=== PATIENT | male | born 1970 | race Caucasian/White ===

== ENCOUNTER 2020-01-12 03:10 | Emergency (ER) | payer MEDICAID, OTHER ==
[~2020-01-12] VITALS: Ht 180.3 cm; Wt 72.6 kg
[2020-01-12 03:10] VITALS: BP 180/105
[~2020-01-12 03:10] MED LIST: FAMO-131 PO; SUCR1TAB31 PO
--- NOTE | 2020-01-12 03:39 | NUR ---
Patient eloped from facility. ER MD notified.
== END 2020-01-12 03:41 | disposition left against medical advice (07) ==
LOC: ER 03:12
DX: M79.604 Pain in right leg (principal); Z53.21 Procedure and treatment not carried out due to patient leaving prior to being seen by health care provider

== ENCOUNTER 2020-02-12 22:36 | Emergency (ER) | payer MEDICAID ==
[~2020-02-12] VITALS: Ht 180.3 cm; Wt 68.0 kg
[2020-02-12 22:46] VITALS: BP 121/76
[2020-02-12] MEDS ORDERED: IBUPROFEN 600 MG TABLET PO ONE (23:00)
--- NOTE | 2020-02-12 23:00 | NUR ---
PT LEFT WITHOUT ACI
== END 2020-02-12 23:14 | disposition home or self-care (01) ==
LOC: ER 22:40
DX: S62.102A Fracture of unspecified carpal bone, left wrist, initial encounter for closed fracture (principal); J45.909 Unspecified asthma, uncomplicated; G89.29 Other chronic pain; Z59.0 Homelessness; Z79.899 Other long term (current) drug therapy; X58.XXXA Exposure to other specified factors, initial encounter; Y93.89 Activity, other specified; Y92.89 Other specified places as the place of occurrence of the external cause; Y99.8 Other external cause status
CPT/HCPCS: 29125; 99283; L3763

== ENCOUNTER 2020-02-15 00:34 | Emergency (ER) | payer MEDICAID ==
[~2020-02-15] VITALS: Ht 180.3 cm; Wt 72.6 kg
--- NOTE | 2020-02-15 00:40 | NUR ---
BIBS FOR C/O L WRIST PAIN S/P FALL
--- NOTE | 2020-02-15 01:26 | NUR ---
PT IS MEDICALLY STABLE FOR D/C. Patient discharged to home in stable condition. Written and verbal after care instructions given.Patient given written and verbal discharge instructions. Patient verbalizes understanding of instructions. Patient is ambulatory with steady gait. Refuses offer of detention placement. Patient given list of available shelters in surrounding area. PT HAD PROPER CLOTHING ON UPON DISCHARGE. SNACKS PROVIDED.
[2020-02-15 01:58] VITALS: BP 145/72
== END 2020-02-15 01:26 | disposition home or self-care (01) ==
LOC: ER 00:37
DX: S52.592A Other fractures of lower end of left radius, initial encounter for closed fracture (principal); J45.909 Unspecified asthma, uncomplicated; G89.29 Other chronic pain; F17.200 Nicotine dependence, unspecified, uncomplicated; Z59.0 Homelessness; Z79.899 Other long term (current) drug therapy; W19.XXXA Unspecified fall, initial encounter; Y93.89 Activity, other specified; Y92.89 Other specified places as the place of occurrence of the external cause; Y99.8 Other external cause status
CPT/HCPCS: 73110

== ENCOUNTER 2020-02-29 22:27 | Emergency (ER) | payer MEDICAID ==
[~2020-02-29] VITALS: Ht 180.3 cm; Wt 72.6 kg
--- NOTE | 2020-02-29 22:32 | NUR ---
CALL FOR TRIAGE, NO ANSWER.
--- NOTE | 2020-02-29 22:50 | NUR ---
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
[2020-02-29] MEDS ORDERED: HYDROMORPHONE HCL 2 MG TABLET PO PRN (23:30)
[2020-02-29] MEDS ORDERED: HYDROMORPHONE HCL 2 MG TABLET ONE (23:43)
[2020-02-29] MEDS ORDERED: diphenhydrAMINE HCL 50 MG CAPSULE ONE (23:43)
[2020-02-29] MEDS ORDERED: ONDANSETRON 4 MG TAB.RAPDIS ONE (23:44)
[2020-02-29 23:49] LABS: BASOPHILS # (AUTO) 0.1 /CMM (0.0-0.2); BASOPHILS % (AUTO) 0.9 % (0.0-2.0); EOSINOPHILS % (AUTO) 3.5 % (0.0-6.0); HEMATOCRIT 33 % (39-51); HEMOGLOBIN 10.7 g/dL (13.5-17.5); LYMPHOCYTES # (AUTO) 1.6 /CMM (0.8-4.8); LYMPHOCYTES % (AUTO) 22.9 % (20.0-44.0); MEAN CORPUSCULAR HGB CONC 32 g/dl (31.0-36.0); MEAN CORPUSCULAR VOLUME 80 fL (80-96); MONOCYTES # (AUTO) 0.9 /CMM (0.1-1.30); MONOCYTES % (AUTO) 13.2 % (2.0-12.0); NEUTROPHILS # (AUTO) 4.1 /CMM (1.8-8.9); NEUTROPHILS % (AUTO) 59.5 % (43.0-81.0); PLATELET COUNT (AUTO) 405 /CMM (150-450); RED BLOOD CELL COUNT(AUTO) 4.17 MIL/uL (4.5-6.0); WHITE BLOOD COUNT (AUTO) 6.9 K/uL (4.3-11.0)
[2020-03-01] MEDS ORDERED: ONDANSETRON 4 MG TAB.RAPDIS SL ONE
[2020-03-01] MEDS ORDERED: diphenhydrAMINE HCL 25 MG CAPSULE PO ONE
[2020-03-01 00:08] LABS: ALBUMIN 3.3 g/dL (3.4-5.0); BILIRUBIN,DIRECT 0.1 mg/dL (0.0-0.2); BILIRUBIN,TOTAL 0.2 mg/dL (0.2-1.0); CALCIUM, SERUM 8.6 mg/dL (8.5-10.1); TOTAL PROTEIN, SERUM 7.2 g/dL (6.4-8.2)
--- NOTE | 2020-03-01 00:42 | NUR ---
pt is medically stable for d/c. IV removed. Catheter intact and site benign. Pressure and 4x4 applied to site. No bleeding noted.Patient discharged to home in stable condition. Written and verbal after care instructions given. Patient verbalizes understanding of instruction. Patient is ambulatory with steady gait. Refuses offer of long term placement. Patient given list of available shelters in surrounding area. snacks provided. had proper clothing on
[2020-03-01 00:49] VITALS: BP 133/77
== END 2020-03-01 00:50 | disposition home or self-care (01) ==
LOC: ER 22:33
DX: R10.84 Generalized abdominal pain (principal); F17.210 Nicotine dependence, cigarettes, uncomplicated; F15.10 Other stimulant abuse, uncomplicated; J45.909 Unspecified asthma, uncomplicated; G89.29 Other chronic pain; Z76.5 Malingerer [conscious simulation]; Z59.0 Homelessness; Z79.899 Other long term (current) drug therapy
CPT/HCPCS: 36415; 74176; 80048; 80076; 83690; 85025; 85730; 99284; 99406; Q0162; Q0163

== ENCOUNTER 2020-06-20 19:23 | Emergency (ER) | payer MEDICAID ==
[~2020-06-20] VITALS: Ht 180.3 cm; Wt 68.0 kg
--- NOTE | 2020-06-20 19:30 | NUR ---
TO ER BED 19 AMBULATORY C/O SI WITH PLAN TO JUM IN FORNT OF A BUS. DENIES HI. PT REPORTS TAKING [place] FOR HIS RECENT L WRIST INJURY. PT AAOX4 NO ACUTE DISTRESS NOTED, RESP EVEN AND UNLABORED. PT CALM AND COOPERATIVE AT THIS TIME. WILL CONTINUE TO MONITOR PT CLOSELY.
[2020-06-20 21:04] LABS: BASOPHILS # (AUTO) 0.1 /CMM (0.0-0.2); BASOPHILS % (AUTO) 1.1 % (0.0-2.0); EOSINOPHILS % (AUTO) 2.3 % (0.0-6.0); HEMATOCRIT 32 % (39-51); HEMOGLOBIN 10.3 g/dL (13.5-17.5); LYMPHOCYTES # (AUTO) 1.5 /CMM (0.8-4.8); LYMPHOCYTES % (AUTO) 18.6 % (20.0-44.0); MEAN CORPUSCULAR HGB CONC 32 g/dl (31.0-36.0); MEAN CORPUSCULAR VOLUME 79 fL (80-96); MONOCYTES # (AUTO) 0.6 /CMM (0.1-1.30); NEUTROPHILS # (AUTO) 5.6 /CMM (1.8-8.9); PLATELET COUNT (AUTO) 549 /CMM (150-450); RED BLOOD CELL COUNT(AUTO) 4.06 MIL/uL (4.5-6.0)
[2020-06-20 21:31] LABS: CALCIUM, SERUM 9.2 mg/dL (8.5-10.1); CARBON DIOXIDE 26 mmol/L (21-32); CHLORIDE 103 mmol/L (98-107); GLUCOSE 116 mg/dL (74-106); POTASSIUM 4.2 mmol/L (3.5-5.1); SODIUM SERUM 139 mmol/L (136-145); UREA NITROGEN, BLOOD 41 mg/dL (7-18)
--- NOTE | 2020-06-20 21:32 | NUR ---
COVID SWAB COLLECTED AND SENT TO LAB.
[2020-06-20 21:33] LABS: ALANINE AMINOTRANSFERASE 20 U/L (12-78); ALBUMIN 3.5 g/dL (3.4-5.0); ALCOHOL, BLOOD < 3 mg/dL (0-0); ALKALINE PHOSPHATASE 100 U/L (46-116); ASPARTATE AMINOTRANSFERASE 20 U/L (15-37); BILIRUBIN,DIRECT 0.1 mg/dL (0.0-0.2); BILIRUBIN,TOTAL 0.2 mg/dL (0.2-1.0); TOTAL PROTEIN, SERUM 7.6 g/dL (6.4-8.2)
[2020-06-20 21:39] LABS: ACETAMINOPHEN < 0 ug/ml (10-30)
[2020-06-20 21:50] LABS: BILIRUBIN,URINE NEGATIVE (NEGATIVE); COLOR,URINE YELLOW (YELLOW); LEUKOCYTE ESTERASE ,URINE NEGATIVE (NEGATIVE); NITRITE, URINE NEGATIVE (NEGATIVE); PH,URINE 5.5 (5.0-8.0); PROTEIN,URINE 30 mg/dl (NEGATIVE); UGLUCOSE NEGATIVE (NEGATIVE); UROBILINOGEN,URINE 0.2 EU/dL (0.2)
--- NOTE | 2020-06-20 22:06 | NUR ---
Call from lab. Rapid covid negative.
[2020-06-20 22:31] LABS: BACTERIA,URINE None seen /HPF (None Seen); RBC,URINE 0-2 /HPF (0-2); SQUAMOUS EPITHELIAL CELL,UR Few /HPF (None Seen); URINE AMORPHOUS URATE Few /HPF (None Seen)
--- NOTE | 2020-06-20 22:47 | NUR ---
CLINICAL AND FACESHEET FAXED TO [facility] FOR VOLUNTARY PSYCH ADMISSION.
--- NOTE | 2020-06-21 03:03 | NUR ---
TRANSFER INFORMATION: PT ACCEPTED AT [facility] ACCEPTING MD AND ROOM # WILL BE PROVIDED DURING REPORT PHONE NUMBER FOR REPORT EXT [id number]
--- NOTE | 2020-06-21 03:07 | NUR ---
PT REFUSING TO GO TO [facility]. PT STATES "I'M NOT SUICIDAL ANYMORE, I'D RATHER JUST GO HOME." PT DENIES SI/HI AT THIS TIME.
[2020-06-21 03:12] VITALS: BP 147/79
--- NOTE | 2020-06-21 03:12 | NUR ---
PT LEFT WITHOUT ACI.
== END 2020-06-21 03:13 | disposition home or self-care (01) ==
LOC: ER 19:26
DX: F19.10 Other psychoactive substance abuse, uncomplicated (principal); R45.851 Suicidal ideations; G89.29 Other chronic pain; Z20.822 Contact with and (suspected) exposure to COVID-19; Z79.891 Long term (current) use of opiate analgesic; Z59.0 Homelessness; F17.200 Nicotine dependence, unspecified, uncomplicated; D50.9 Iron deficiency anemia, unspecified; S62.102D Fracture of unspecified carpal bone, left wrist, subsequent encounter for fracture with routine healing; X58.XXXD Exposure to other specified factors, subsequent encounter
CPT/HCPCS: 36415; 80048; 80076; 80299; 80307; 80320; 81001; 85025; 87426; 99285; C9803; G0480

== ENCOUNTER 2021-01-10 01:15 | Inpatient (IN) | payer MEDICAID ==
[~2021-01-10] VITALS: Ht 180.3 cm; Wt 72.6 kg
--- NOTE | 2021-01-10 01:31 | NUR ---
CALLED FOR TRIAGE NOT IN WAITING ROOM
[2021-01-10] MEDS ORDERED: KETOROLAC TROMETHAMINE INJ 60 MG/2 ML VIAL IM ONE ×2 (02:00→02:10)
--- NOTE | 2021-01-10 02:00 | NUR ---
BLOOD WORK AND URINE COLLECTED AND SENT TO LAB
[2021-01-10 02:13] LABS: BILIRUBIN,URINE Negative (NEGATIVE); COLOR,URINE LIGHT YELLOW (YELLOW); LEUKOCYTE ESTERASE ,URINE Negative (NEGATIVE); NITRITE, URINE Negative (NEGATIVE); PROTEIN,URINE 30 mg/dl (NEGATIVE); UGLUCOSE Negative (NEGATIVE); UROBILINOGEN,URINE 0.2 EU/dL (0.2)
[2021-01-10 02:19] LABS: BASOPHILS # (AUTO) 0.2 K/uL (0.0-0.2); BASOPHILS % (AUTO) 2.1 % (0.0-2.0); HEMATOCRIT 37 % (39-51); HEMOGLOBIN 11.7 g/dL (13.5-17.5); LYMPHOCYTES # (AUTO) 1.6 K/uL (0.8-4.8); LYMPHOCYTES % (AUTO) 21.3 % (20.0-44.0); MEAN CORPUSCULAR HGB CONC 32 g/dl (31.0-36.0); MEAN CORPUSCULAR VOLUME 79 fL (80-96); MONOCYTES # (AUTO) 0.7 K/uL (0.1-1.30); MONOCYTES % (AUTO) 9.9 % (2.0-12.0); NEUTROPHILS # (AUTO) 4.6 K/uL (1.8-8.9); NEUTROPHILS % (AUTO) 62.7 % (43.0-81.0); PLATELET COUNT (AUTO) 376 K/uL (150-450); RED BLOOD CELL COUNT(AUTO) 4.62 MIL/uL (4.5-6.0); WHITE BLOOD COUNT (AUTO) 7.4 K/uL (4.3-11.0)
[2021-01-10 02:26] LABS: CALCIUM, SERUM 9.2 mg/dL (8.5-10.1); CREATININE 1.5 mg/dL (0.6-1.3); POTASSIUM 4.1 mmol/L (3.5-5.1)
--- NOTE | 2021-01-10 02:30 | NUR ---
PT GOING TO CT.
[2021-01-10 02:31] LABS: ALBUMIN 4.1 g/dL (3.4-5.0); BILIRUBIN,DIRECT 0.2 mg/dL (0.0-0.2); BILIRUBIN,TOTAL 0.7 mg/dL (0.2-1.0); TOTAL PROTEIN, SERUM 8.2 g/dL (6.4-8.2)
--- NOTE | 2021-01-10 02:48 | NUR ---
per lab, trop 1.508. aware
--- NOTE | 2021-01-10 02:58 | NUR ---
DR COELHO PAGED FOR CARDIOLOGY CONSULT. TRANSFERED TO
[2021-01-10] MEDS ORDERED: ASPIRIN 325 MG TABLET PO ONE (03:00)
--- NOTE | 2021-01-10 03:07 | NUR ---
covid swab sent to lab
[2021-01-10] MEDS ORDERED: ASPIRIN 325 MG TABLET ONE (03:24)
--- NOTE | 2021-01-10 03:27 | NUR ---
called [facility], conduit helper was paged
[2021-01-10] MEDS ORDERED: ENOXAPARIN SODIUM 80 MG/0.8 ML DISP.SYRIN SQ ONE ×2 (03:28→03:30)
[2021-01-10] MEDS ORDERED: hydrALAZINE HCL IV 20 MG VIAL ONE (03:41)
--- NOTE | 2021-01-10 03:58 | NUR ---
called [facility] to have online affiliate marketing manager dr christianson
[2021-01-10] MEDS ORDERED: hydrALAZINE HCL IV 20 MG VIAL IV ONE (04:00)
--- NOTE | 2021-01-10 04:22 | NUR ---
called [facility] to have residential subcontractor dr christianson
--- NOTE | 2021-01-10 04:39 | NUR ---
called house sup for tele bed
[2021-01-10] MEDS ORDERED: ACETAMINOPHEN 325 MG TABLET PO PRN (06:30)
[2021-01-10] MEDS ORDERED: MAGNESIUM HYDROXIDE 30 ML UDC PO PRN (06:30)
[2021-01-10] MEDS ORDERED: MAG HYDROX/AL HYDROX/SIMETH 30 ML UDC PO PRN (06:30)
[2021-01-10] MEDS ORDERED: Z GUARD REMEDY 2 OZ OINT TP PRN (06:30)
[2021-01-10] MEDS ORDERED: ONDANSETRON HCL/PF 4 MG/2 ML VIAL IVP PRN (06:30)
[2021-01-10] MEDS ORDERED: HYDROCODONE/APAP 5/325MG TABLET PO PRN (06:30)
[2021-01-10] MEDS ORDERED: SUCRALFATE 1 G TABLET PO SCH (07:30)
[2021-01-10] MEDS ORDERED: SUCRALFATE 1 G TABLET ONE (08:04)
[2021-01-10] MEDS ORDERED: FAMOTIDINE (20 MG) 20 MG TABLET ONE (08:04)
--- NOTE | 2021-01-10 08:36 | NUR ---
BUSINESS SUPPORT PROFESSIONAL AT THE BEDSIDE
[2021-01-10] MEDS ORDERED: FAMOTIDINE (20 MG) 20 MG TABLET PO SCH (09:00)
[2021-01-10] MEDS ORDERED: HYDROCODONE/APAP 5/325MG TABLET ONE (09:10)
--- NOTE | 2021-01-10 09:13 | NUR ---
COVID SWAB DONE AND SENT TO THE LAB
--- NOTE | 2021-01-10 09:47 | NUR ---
FRANCISCO J ALEJANDRO NP MADE AWARE, PATIENT INSISTED ON LEAVING AMA. PER MD OK TO LET HIM LEAVE. PATIENT APPEARS TO BE IN STABLE CONDITION AT THIS TIME, AMBULATORY WITH STEADY GAIT. Patient does not wish to proceed with medical care recommended by Francisco J Alejandro NP. Patient given information related to possible complications, up to and including , which could occur as a result of leaving the hospital at this time. Patient verbalizes understanding of risks involved due to leaving against medical advice. Patient has signed AMA form.
[2021-01-10 09:55] VITALS: BP 135/88
[2021-01-10] MEDS ORDERED: ENOXAPARIN SODIUM 80 MG/0.8 ML DISP.SYRIN SQ SCH (21:00)
[2021-01-10] MEDS ORDERED: ATORVASTATIN 40 MG TABLET PO SCH (22:00)
[2021-01-11] MEDS ORDERED: ASPIRIN EC 81 MG TABLET.DR PO SCH (09:00)
== END 2021-01-10 09:50 | disposition left against medical advice (07) | DRG 190 ==
LOC: ER 01:16 → TRANSITION 05:22
PROVIDERS: ADMIT Nurse Practitioner Acute Care; ATTEND Nurse Practitioner Acute Care
DX: I21.4 Non-ST elevation (NSTEMI) myocardial infarction (principal); N17.0 Acute kidney failure with tubular necrosis; K56.7 Ileus, unspecified; D50.9 Iron deficiency anemia, unspecified; F10.10 Alcohol abuse, uncomplicated; F11.10 Opioid abuse, uncomplicated; F15.10 Other stimulant abuse, uncomplicated; I16.0 Hypertensive urgency; F17.210 Nicotine dependence, cigarettes, uncomplicated; J45.909 Unspecified asthma, uncomplicated; G89.29 Other chronic pain; K29.70 Gastritis, unspecified, without bleeding; R91.1 Solitary pulmonary nodule; Z59.0 Homelessness; Z91.19 Patient's noncompliance with other medical treatment and regimen; Z20.822 Contact with and (suspected) exposure to COVID-19
CPT/HCPCS: 36415; 71045-TC; 74018; 80048-TC; 80076-TC; 83690-TC; 84484-TC; 85025-TC; 93307-TC; C9803; G0378; J0360; J1650; J1885; U0003

== ENCOUNTER 2021-03-04 16:56 | Emergency (ER) | payer MEDICAID ==
[~2021-03-04] VITALS: Ht 180.3 cm; Wt 68.0 kg
--- NOTE | 2021-03-04 17:00 | NUR ---
PT ARRIVED WITH CHEST PAIN AND EKG WAS DONE UPON ARRIVAL.
--- NOTE | 2021-03-04 17:10 | NUR ---
AT THE BEDSIDE
--- NOTE | 2021-03-04 18:43 | NUR ---
PT LEFT AMA.
[2021-03-04 18:55] VITALS: BP 142/99
[2021-03-04 19:09] LABS: CREATININE 1.7 mg/dL (0.6-1.3); POTASSIUM 4.4 mmol/L (3.5-5.1)
[2021-03-04 19:13] LABS: ALBUMIN 3.3 g/dL (3.4-5.0); BILIRUBIN,DIRECT 0.1 mg/dL (0.0-0.2); BILIRUBIN,TOTAL 0.2 mg/dL (0.2-1.0); TOTAL PROTEIN, SERUM 7.3 g/dL (6.4-8.2)
[2021-03-04 19:50] LABS: BASOPHILS # (AUTO) 0.1 K/uL (0.0-0.2); BASOPHILS % (AUTO) 0.4 % (0.0-2.0); EOSINOPHILS % (AUTO) 2.8 % (0.0-6.0); HEMATOCRIT 34 % (39-51); HEMOGLOBIN 11.2 g/dL (13.5-17.5); LYMPHOCYTES # (AUTO) 2.6 K/uL (0.8-4.8); MEAN CORPUSCULAR HGB CONC 33 g/dl (31.0-36.0); MEAN CORPUSCULAR VOLUME 80 fL (80-96); MONOCYTES # (AUTO) 1.5 K/uL (0.1-1.30); MONOCYTES % (AUTO) 8.8 % (2.0-12.0); NEUTROPHILS # (AUTO) 12.8 K/uL (1.8-8.9); PLATELET COUNT (AUTO) 424 K/uL (150-450); WHITE BLOOD COUNT (AUTO) 17.5 K/uL (4.3-11.0)
== END 2021-03-04 18:55 | disposition left against medical advice (07) ==
LOC: ER 17:00
DX: R07.89 Other chest pain (principal); F17.200 Nicotine dependence, unspecified, uncomplicated; J45.909 Unspecified asthma, uncomplicated; G89.29 Other chronic pain; Z88.2 Allergy status to sulfonamides; Z88.1 Allergy status to other antibiotic agents; Z59.00 Homelessness unspecified; Z79.899 Other long term (current) drug therapy
CPT/HCPCS: 36415; 71045-TC; 80048-TC; 80076-TC; 84484-TC; 85025-TC

== ENCOUNTER 2024-10-21 18:21 | Inpatient (IN) | payer OTHER ==
[~2024-10-21] VITALS: Ht 177.8 cm; Wt 50.8 kg
[~2024-10-21 18:21] MED LIST changes: +CIPR500S2 PO; +IBUP-1957 PO; +METR500T PO
[2024-10-21 19:12] LABS: BASOPHILS % (AUTO) 0.3 % (0.0-2.0); EOSINOPHILS # (AUTO) 0.4 K/uL (0.0-0.7); EOSINOPHILS % (AUTO) 3.1 % (0.0-6.0); HEMATOCRIT 28 % (39-51); HEMOGLOBIN 8.9 g/dL (13.5-17.5); LYMPHOCYTES # (AUTO) 1.5 K/uL (0.8-4.8); LYMPHOCYTES % (AUTO) 13.2 % (20.0-44.0); MEAN CORPUSCULAR HEMOGLOBIN 25 PG (26.0-33.0); MEAN CORPUSCULAR HGB CONC 32 g/dl (31.0-36.0); MEAN CORPUSCULAR VOLUME 79 fL (80-96); MONOCYTES # (AUTO) 1.6 K/uL (0.1-1.30); MONOCYTES % (AUTO) 13.4 % (2.0-12.0); NEUTROPHILS # (AUTO) 8.1 K/uL (1.8-8.9); PLATELET COUNT (AUTO) 561 K/uL (150-450); RED BLOOD CELL COUNT(AUTO) 3.56 MIL/uL (4.5-6.0); RED CELL DISTRIBUTION WIDTH 17.6 % (11.5-15.0); WHITE BLOOD COUNT (AUTO) 11.6 K/uL (4.3-11.0)
[2024-10-21] MEDS ORDERED: LORAZEPAM 1 MG TABLET ONE (19:19)
[2024-10-21 19:20] LABS: CALCIUM, SERUM 8.4 mg/dL (8.5-10.1); CARBON DIOXIDE 24 mmol/L (21-32); CHLORIDE 107 mmol/L (98-107); CREATININE 2.4 mg/dL (0.6-1.3); GLUCOSE 104 mg/dL (74-106); SODIUM SERUM 139 mmol/L (136-145); UREA NITROGEN, BLOOD 24 mg/dL (7-18)
[2024-10-21] MEDS: LORAZEPAM 1 MG TABLET PO ONE (19:22)
[2024-10-21 19:25] LABS: ACETAMINOPHEN < 10 ug/ml (10-30); ALANINE AMINOTRANSFERASE 6 U/L (12-78); ALBUMIN 2.1 g/dL (3.4-5.0); ALCOHOL, BLOOD < 3 mg/dL (0-10); ALKALINE PHOSPHATASE 107 U/L (46-116); ASPARTATE AMINOTRANSFERASE 12 U/L (15-37); BILIRUBIN,DIRECT 0.1 mg/dL (0.0-0.2); BILIRUBIN,TOTAL 0.2 mg/dL (0.2-1.0); TOTAL PROTEIN, SERUM 6.7 g/dL (6.4-8.2)
[2024-10-21 19:29] LABS: SALICYLATE 1.5 mg/dL (2.8-20.0)
[2024-10-21 20:11] LABS: APPEARANCE,URINE CLEAR (CLEAR); BILIRUBIN,URINE NEGATIVE (NEGATIVE); BLOOD, URINE NEGATIVE Ery/uL (NEGATIVE); COLOR,URINE YELLOW (YELLOW); KETONES,URINE NEGATIVE (NEGATIVE); LEUKOCYTE ESTERASE ,URINE NEGATIVE (NEGATIVE); NITRITE, URINE NEGATIVE (NEGATIVE); PROTEIN,URINE NEGATIVE (NEGATIVE); UGLUCOSE NEGATIVE (NEGATIVE); UROBILINOGEN,URINE 0.2 EU/dL (0.2)
[2024-10-21 20:47] LABS: AMPHETAMINE, URINE NEGATIVE (NEGATIVE); BARBITURATE, URINE NEGATIVE (NEGATIVE); BENZODIAZEPINE, URINE NEGATIVE (NEGATIVE); CANNABINOID, URINE NEGATIVE (NEGATIVE); COCCAINE, URINE NEGATIVE (NEGATIVE); OPIATE, URINE NEGATIVE (NEGATIVE); PHENCYCLIDINE SCREEN,URINE NEGATIVE (NEGATIVE)
[2024-10-21] MEDS: IV NS 0.9% 1,000 ML BAG IV ONE (21:10)
[2024-10-21] MEDS: IV NS 0.9% 1,000 ML IV ONE (22:28)
[2024-10-21] MEDS ORDERED: MAG HYDROX/AL HYDROX/SIMETH 30 ML UDC PO PRN (22:30)
[2024-10-21] MEDS ORDERED: Z GUARD REMEDY 4 OZ OINT TP PRN (22:30)
[2024-10-21] MEDS ORDERED: ONDANSETRON HCL/PF 4 MG/2 ML VIAL IVP PRN (22:30)
[2024-10-21] MEDS ORDERED: MAGNESIUM HYDROXIDE 30 ML UDC PO PRN (22:30)
[2024-10-21 22:52] LABS: IRON, SERUM 22 ug/dl (50-175); TOTAL IRON BINDING CAPACITY 110 ug/dl (250-450)
[2024-10-22] VITALS: BP 119/73; TEMP 98.2; O2SAT 95
[2024-10-22] MEDS: ACETAMINOPHEN 325 MG TABLET PO PRN (03:55)
[2024-10-22 04:00] VITALS: BP 135/85; TEMP 97.9; O2SAT 98
[2024-10-22 07:25] LABS: CALCIUM, SERUM 8.2 mg/dL (8.5-10.1); CREATININE 2.1 mg/dL (0.6-1.3); MAGNESIUM 1.8 mg/dL (1.8-2.4); PHOSPHORUS 2.7 mg/dL (2.5-4.9); POTASSIUM 4.2 mmol/L (3.5-5.1)
[2024-10-22 07:29] LABS: BASOPHILS % (AUTO) 0.3 % (0.0-2.0); EOSINOPHILS # (AUTO) 0.4 K/uL (0.0-0.7); EOSINOPHILS % (AUTO) 4.5 % (0.0-6.0); HEMATOCRIT 23 % (39-51); HEMOGLOBIN 7.5 g/dL (13.5-17.5); LYMPHOCYTES # (AUTO) 1.2 K/uL (0.8-4.8); LYMPHOCYTES % (AUTO) 15.3 % (20.0-44.0); MEAN CORPUSCULAR HEMOGLOBIN 25 PG (26.0-33.0); MEAN CORPUSCULAR HGB CONC 32 g/dl (31.0-36.0); MEAN CORPUSCULAR VOLUME 77 fL (80-96); MONOCYTES % (AUTO) 12.1 % (2.0-12.0); NEUTROPHILS # (AUTO) 5.5 K/uL (1.8-8.9); NEUTROPHILS % (AUTO) 67.8 % (43.0-81.0); PLATELET COUNT (AUTO) 490 K/uL (150-450); RED BLOOD CELL COUNT(AUTO) 3.03 MIL/uL (4.5-6.0); RED CELL DISTRIBUTION WIDTH 17.1 % (11.5-15.0); WHITE BLOOD COUNT (AUTO) 8.1 K/uL (4.3-11.0)
[2024-10-22 08:00] VITALS: BP 137/82; TEMP 98.1; O2SAT 97
[2024-10-22] MEDS ORDERED: MIRT-121 PO (08:18)
[2024-10-22] MEDS ORDERED: TRAM50TA2 PO (08:18)
[2024-10-22] MEDS ORDERED: AMIT25TA9 PO (08:18)
[2024-10-22] MEDS: PANTOPRAZOLE 40 MG TABLET.DR PO SCH (11:03)
[2024-10-22] MEDS: oxyCODONE/APAP (5/325 MG) 1 UDTAB TABLET PO PRN (11:43)
[2024-10-22 12:00] VITALS: BP 137/82; TEMP 98.1; O2SAT 97
[2024-10-22 14:20] LABS: LYMPHOCYTES % (MANUAL) 15 % (16-48); MONOCYTES % (MANUAL) 12 % (0-11.0)
[2024-10-22 14:21] LABS: ANISOCYTOSIS 1+; EOSINOPHILS % (MANUAL) 5 % (0-4); NEUTROPHILS % (MANUAL) 68 (42-76); PLATELET ESTIMATE ADEQUATE
[2024-10-22] MEDS: GABAPENTIN 100 MG CAPSULE PO SCH (15:06)
[2024-10-22 16:00] VITALS: BP 149/82; TEMP 98.2; O2SAT 98
[2024-10-22 20:00] VITALS: BP 140/88; TEMP 98.8; O2SAT 99
[2024-10-23 04:00] VITALS: BP 124/79; TEMP 98.4; O2SAT 99
[2024-10-23 08:38] LABS: BASOPHILS % (AUTO) 0.3 % (0.0-2.0); EOSINOPHILS # (AUTO) 0.4 K/uL (0.0-0.7); EOSINOPHILS % (AUTO) 3.2 % (0.0-6.0); HEMATOCRIT 27 % (39-51); HEMOGLOBIN 8.6 g/dL (13.5-17.5); LYMPHOCYTES # (AUTO) 1.9 K/uL (0.8-4.8); LYMPHOCYTES % (AUTO) 14.9 % (20.0-44.0); MEAN CORPUSCULAR HEMOGLOBIN 25 PG (26.0-33.0); MEAN CORPUSCULAR HGB CONC 32 g/dl (31.0-36.0); MEAN CORPUSCULAR VOLUME 78 fL (80-96); MONOCYTES # (AUTO) 1.1 K/uL (0.1-1.30); MONOCYTES % (AUTO) 8.6 % (2.0-12.0); NEUTROPHILS # (AUTO) 9.3 K/uL (1.8-8.9); PLATELET COUNT (AUTO) 549 K/uL (150-450); RED CELL DISTRIBUTION WIDTH 17.5 % (11.5-15.0); WHITE BLOOD COUNT (AUTO) 12.7 K/uL (4.3-11.0)
[2024-10-23 08:59] LABS: ALBUMIN 1.9 g/dL (3.4-5.0); BILIRUBIN,TOTAL 0.2 mg/dL (0.2-1.0); CALCIUM, SERUM 8.4 mg/dL (8.5-10.1); CREATININE 1.7 mg/dL (0.6-1.3); MAGNESIUM 1.9 mg/dL (1.8-2.4); PHOSPHORUS 2.5 mg/dL (2.5-4.9); POTASSIUM 4.2 mmol/L (3.5-5.1); TOTAL PROTEIN, SERUM 6.4 g/dL (6.4-8.2)
[2024-10-23 12:00] VITALS: BP 124/79; TEMP 98.4; O2SAT 99
[2024-10-23 16:00] VITALS: BP 125/78; TEMP 97.9; O2SAT 98
[2024-10-24 04:00] VITALS: BP 134/76; TEMP 97.7; O2SAT 97
[2024-10-24 06:58] LABS: BASOPHILS # (AUTO) 0.1 K/uL (0.0-0.2); BASOPHILS % (AUTO) 0.5 % (0.0-2.0); EOSINOPHILS # (AUTO) 0.5 K/uL (0.0-0.7); EOSINOPHILS % (AUTO) 4.8 % (0.0-6.0); HEMATOCRIT 30 % (39-51); HEMOGLOBIN 9.2 g/dL (13.5-17.5); LYMPHOCYTES # (AUTO) 2.4 K/uL (0.8-4.8); MEAN CORPUSCULAR HEMOGLOBIN 25 PG (26.0-33.0); MEAN CORPUSCULAR HGB CONC 31 g/dl (31.0-36.0); MEAN CORPUSCULAR VOLUME 80 fL (80-96); MONOCYTES # (AUTO) 0.9 K/uL (0.1-1.30); MONOCYTES % (AUTO) 8.6 % (2.0-12.0); NEUTROPHILS # (AUTO) 6.6 K/uL (1.8-8.9); NEUTROPHILS % (AUTO) 63.1 % (43.0-81.0); PLATELET COUNT (AUTO) 563 K/uL (150-450); RED BLOOD CELL COUNT(AUTO) 3.72 MIL/uL (4.5-6.0); RED CELL DISTRIBUTION WIDTH 17.3 % (11.5-15.0); WHITE BLOOD COUNT (AUTO) 10.5 K/uL (4.3-11.0)
[2024-10-24 07:55] LABS: CALCIUM, SERUM 8.7 mg/dL (8.5-10.1); CREATININE 1.6 mg/dL (0.6-1.3); PHOSPHORUS 2.5 mg/dL (2.5-4.9); POTASSIUM 4.4 mmol/L (3.5-5.1)
[2024-10-24 08:00] VITALS: BP 134/95; TEMP 98.4; O2SAT 98
[2024-10-24 12:00] VITALS: BP 134/95; TEMP 98.4; O2SAT 98
[2024-10-24 16:00] VITALS: BP 102/75; TEMP 98.6; O2SAT 97
[2024-10-25 04:00] VITALS: BP 141/96; TEMP 98.2; O2SAT 98
[2024-10-25 08:00] VITALS: BP 127/100; TEMP 98.4; O2SAT 97
[2024-10-25 08:07] LABS: PTH, INTACT 19 pg/mL (15-65)
[2024-10-25 16:00] VITALS: BP 123/88; TEMP 97.5; O2SAT 98
[2024-10-25] MEDS ORDERED: GABA100C PO (16:16)
[2024-10-25 20:00] VITALS: BP 123/87; TEMP 98.2; O2SAT 98
[2024-10-26 08:00] VITALS: BP 112/62; TEMP 98; O2SAT 98
[2024-10-26] MEDS: LORAZEPAM 0.5 MG TABLET PO ONE (10:55)
[2024-10-26 12:34] VITALS: BP 110/63; TEMP 98; O2SAT 98
[2024-10-26 16:10] LABS: *SPE A/G RATIO 0.7 (0.7-1.7); *SPE ALBUMIN 2.2 g/dL (2.9-4.4); *SPE ALPHA-1-GLOBULIN 0.3 g/dL (0.0-0.4); *SPE ALPHA-2-GLOBULIN 0.9 g/dL (0.4-1.0); *SPE BETA GLOBULIN 0.8 g/dL (0.7-1.3); *SPE GLOBULIN, TOTAL 3.3 g/dL (2.2-3.9); *SPE M-SPIKE Not Observed g/dL (Not Observed); *SPE PROTEIN TOTAL 5.5 g/dL (6.0-8.5); *SPEGAMMA GLOBULIN 1.3 g/dL (0.4-1.8)
== END 2024-10-26 14:55 | DRG 469 ==
LOC: ER 18:22 → TELE1 23:07 → MEDSG1 23:11
PROVIDERS: ATTEND Nurse Practitioner Family
DX: N17.9 Acute kidney failure, unspecified (principal); U07.1 COVID-19; F29 Unspecified psychosis not due to a substance or known physiological condition; R45.851 Suicidal ideations; E83.9 Disorder of mineral metabolism, unspecified; F17.210 Nicotine dependence, cigarettes, uncomplicated; D50.9 Iron deficiency anemia, unspecified; D72.829 Elevated white blood cell count, unspecified; E86.9 Volume depletion, unspecified; Z99.3 Dependence on wheelchair; F32.A Depression, unspecified; G89.4 Chronic pain syndrome; N18.30 Chronic kidney disease, stage 3 unspecified; Z88.2 Allergy status to sulfonamides; Z91.199 Patient's noncompliance with other medical treatment and regimen due to unspecified reason; J44.89 Other specified chronic obstructive pulmonary disease; F19.10 Other psychoactive substance abuse, uncomplicated; G62.9 Polyneuropathy, unspecified
CPT/HCPCS: 36415; 71045-TC; 76770-TC; 80048-TC; 80053-TC; 80076-TC; 82550-TC; 82728-TC; 83540-TC; 83735-TC; 83970; 84100-TC; 84155; 84165; 85025-TC; 85378-TC; 86140-TC; 93970-TC; G0378; G0480; J7030

== ENCOUNTER 2024-11-09 16:12 | Inpatient (IN) | payer OTHER ==
[~2024-11-09] VITALS: Ht 180.3 cm; Wt 57.6 kg
[~2024-11-09 16:12] MED LIST changes: +AMIT25TA9 PO; -CIPR500S2 PO; -FAMO-131 PO; +GABA100C PO; -IBUP-1957 PO; -METR500T PO; +MIRT-121 PO; -SUCR1TAB31 PO; +TRAM50TA2 PO
[2024-11-09] MEDS ORDERED: ONDANSETRON HCL/PF 4 MG/2 ML VIAL ONE ×2 (20:27→21:54)
[2024-11-09] MEDS ORDERED: ACETAMINOPHEN ES 500 MG TABLET ONE (20:27)
[2024-11-09] MEDS: IV NS 0.9% 1,000 ML BAG IV ONE ×2 (20:29→21:56)
[2024-11-09] MEDS: ACETAMINOPHEN ES 500 MG TABLET PO ONE (20:29)
[2024-11-09 20:33] LABS: PLATELET COUNT (AUTO) 569 K/uL (150-450); RED BLOOD CELL COUNT(AUTO) 3.99 MIL/uL (4.5-6.0); RED CELL DISTRIBUTION WIDTH 18.4 % (11.5-15.0); WHITE BLOOD COUNT (AUTO) 20.4 K/uL (4.3-11.0)
[2024-11-09 20:39] LABS: APPEARANCE,URINE CLEAR (CLEAR); BLOOD, URINE Negative Ery/uL (NEGATIVE); LEUKOCYTE ESTERASE ,URINE Negative (NEGATIVE); UGLUCOSE Negative (NEGATIVE)
[2024-11-09 20:39] LABS: CALCIUM, SERUM 9.3 mg/dL (8.5-10.1); CREATININE 1.6 mg/dL (0.6-1.3); SODIUM SERUM 136.0 mmol/L (136-145); UREA NITROGEN, BLOOD 39.0 mg/dL (7-18)
[2024-11-09 20:40] LABS: NITRITE, URINE NEGATIVE (NEGATIVE)
[2024-11-09 20:45] LABS: ASPARTATE AMINOTRANSFERASE 14.0 U/L (15-37); TOTAL PROTEIN, SERUM 7.4 g/dL (6.4-8.2)
[2024-11-09] MEDS: ONDANSETRON HCL/PF 4 MG/2 ML VIAL IVP ONE ×2 (20:53→21:56)
[2024-11-09] MEDS ORDERED: PIPERACI/TAZO 3.375GM/D5W 50ML PB IV ONE (21:54)
[2024-11-09] MEDS ORDERED: MORPHINE SULFATE INJ 4 MG/ML DISP.SYRIN ONE (21:55)
[2024-11-09] MEDS: MORPHINE SULFATE INJ 2 MG/ML DISP.SYRIN IV ONE (21:56)
[2024-11-09] MEDS: PIPERACILLIN /TAZOBACTAM 3.375 G in IV D5W 50 ML IV ONE (21:56)
[2024-11-09] MEDS ORDERED: IV NS 0.9% 250 ML IV ONE (22:30)
[2024-11-09] MEDS ORDERED: IOHEXOL-300 100 ML VIAL IV ONE (22:30)
[2024-11-09] MEDS ORDERED: MAG HYDROX/AL HYDROX/SIMETH 30 ML UDC PO PRN (23:30)
[2024-11-09] MEDS ORDERED: ONDANSETRON HCL/PF 4 MG/2 ML VIAL IVP PRN (23:30)
[2024-11-09] MEDS ORDERED: Z GUARD REMEDY 4 OZ OINT TP PRN (23:30)
[2024-11-09 23:52] VITALS: O2SAT 97
[2024-11-10 00:10] VITALS: BP 120/69; TEMP 97.7; O2SAT 100
[2024-11-10] MEDS: IV NS 0.9% 1,000 ML IV PRN (01:10)
[2024-11-10] MEDS: PIPERACILLIN /TAZOBACTAM 3.375 G in IV D5W 50 ML IV ONE (03:39)
[2024-11-10] MEDS: PIPERACI/TAZO 3.375GM/D5W 50ML PB IV ONE (03:43)
[2024-11-10] MEDS: ACETAMINOPHEN 325 MG TABLET PO PRN (04:54)
[2024-11-10 07:23] LABS: PLATELET COUNT (AUTO) 447 K/uL (150-450); RED BLOOD CELL COUNT(AUTO) 3.14 MIL/uL (4.5-6.0); RED CELL DISTRIBUTION WIDTH 18.3 % (11.5-15.0); WHITE BLOOD COUNT (AUTO) 9.4 K/uL (4.3-11.0)
[2024-11-10 07:27] LABS: LACTIC ACID 0.8 mmol/L (0.4-2.0)
[2024-11-10 07:38] LABS: ASPARTATE AMINOTRANSFERASE 11.0 U/L (15-37); CALCIUM, SERUM 8.0 mg/dL (8.5-10.1); CREATININE 1.4 mg/dL (0.6-1.3); PHOSPHORUS 3.8 mg/dL (2.5-4.9); SODIUM SERUM 140.0 mmol/L (136-145); TOTAL PROTEIN, SERUM 5.7 g/dL (6.4-8.2); UREA NITROGEN, BLOOD 34.0 mg/dL (7-18)
[2024-11-10 08:00] VITALS: BP 114/76; TEMP 97.9; O2SAT 100
[2024-11-10] MEDS: PANTOPRAZOLE 40 MG VIAL IV SCH (09:11)
[2024-11-10] MEDS: AMITRIPTYLINE HCL 25 MG TABLET PO SCH (09:12)
[2024-11-10] MEDS: MIRTAZAPINE 15 MG TABLET PO SCH (09:12)
[2024-11-10] MEDS: GABAPENTIN 100 MG CAPSULE PO SCH (09:12)
[2024-11-10] MEDS: PIPERACILLIN /TAZOBACTAM 3.375 G in IV D5W 50 ML IV SCH (12:02)
[2024-11-10 13:42] LABS: CREATININE, URINE 36.5 MG/DL (30.0-125.0); URINE SODIUM, RANDOM 122.0 mmol/l (40-220); URINE TOTAL PROTEIN 14.7 mg/dL (0-11.9)
[2024-11-10 13:52] LABS: AMPHETAMINE, URINE NEGATIVE (NEGATIVE); BARBITURATE, URINE NEGATIVE (NEGATIVE); BENZODIAZEPINE, URINE NEGATIVE (NEGATIVE); CANNABINOID, URINE NEGATIVE (NEGATIVE); COCCAINE, URINE NEGATIVE (NEGATIVE)
[2024-11-10 13:53] LABS: OPIATE, URINE POSITIVE (NEGATIVE)
[2024-11-10 16:00] VITALS: BP 120/78; TEMP 97.9; O2SAT 95
[2024-11-10] MEDS: MAGNESIUM HYDROXIDE 30 ML UDC PO PRN (17:12)
[2024-11-10] MEDS: HYDROCODONE/APAP 10/325MG TABLET PO PRN (17:13)
[2024-11-10 20:00] VITALS: BP 119/83; TEMP 97.7; O2SAT 98
[2024-11-11] MEDS: ZOLPIDEM TARTRATE 5 MG TABLET PO PRN (01:59)
[2024-11-11 07:30] LABS: PLATELET COUNT (AUTO) 447 K/uL (150-450); RED BLOOD CELL COUNT(AUTO) 3.18 MIL/uL (4.5-6.0); RED CELL DISTRIBUTION WIDTH 18.4 % (11.5-15.0); WHITE BLOOD COUNT (AUTO) 9.4 K/uL (4.3-11.0)
[2024-11-11] MEDS: PANTOPRAZOLE 40 MG/PACK PACK PO SCH (08:30)
[2024-11-11 08:46] LABS: CALCIUM, SERUM 8.8 mg/dL (8.5-10.1); CREATININE 1.4 mg/dL (0.6-1.3); PHOSPHORUS 3.2 mg/dL (2.5-4.9); SODIUM SERUM 141.0 mmol/L (136-145); UREA NITROGEN, BLOOD 22.0 mg/dL (7-18)
[2024-11-11] MEDS ORDERED: AMOX-430 PO (08:58)
[2024-11-11] MEDS ORDERED: TRAM50TA2 PO (08:58)
== END 2024-11-11 09:10 | disposition home or self-care (01) | DRG 248 ==
LOC: ER 16:45 → MED 22:32
PROVIDERS: ADMIT Nurse Practitioner Acute Care
DX: A04.9 Bacterial intestinal infection, unspecified (principal); N17.0 Acute kidney failure with tubular necrosis; E44.0 Moderate protein-calorie malnutrition; E88.09 Other disorders of plasma-protein metabolism, not elsewhere classified; E83.9 Disorder of mineral metabolism, unspecified; D63.8 Anemia in other chronic diseases classified elsewhere; E86.9 Volume depletion, unspecified; D75.839 Thrombocytosis, unspecified; Z88.2 Allergy status to sulfonamides; J45.909 Unspecified asthma, uncomplicated; N18.30 Chronic kidney disease, stage 3 unspecified; Z68.1 Body mass index [BMI] 19.9 or less, adult; M89.9 Disorder of bone, unspecified; D72.829 Elevated white blood cell count, unspecified; Z87.891 Personal history of nicotine dependence; Z59.00 Homelessness unspecified
CPT/HCPCS: 36415; 71045-TC; 76705-TC; 80048-TC; 80053-TC; 80076-TC; 82570-TC; 83605-TC; 83690-TC; 83735-TC; 84100-TC; 84300-TC; 85025-TC; 87040-TC; 87081-TC; 98960; A4223; G0378; J2270; J2405; J2470; J2543; J7030; J7050; J7060; Q9967

== ENCOUNTER 2024-11-12 07:59 | Inpatient (IN) | payer OTHER ==
[~2024-11-12] VITALS: Ht 175.3 cm; Wt 59.0 kg
[~2024-11-12 07:59] MED LIST changes: +AMOX-430 PO
[2024-11-12] MEDS: MORPHINE SULFATE INJ 2 MG/ML DISP.SYRIN IV ONE ×2 (08:30→11:30)
[2024-11-12] MEDS: IV NS 0.9% 1,000 ML BAG IV ONE ×2 (08:30→10:00)
[2024-11-12] MEDS: ONDANSETRON HCL/PF 4 MG/2 ML VIAL IVP ONE (08:30)
[2024-11-12] MEDS ORDERED: MORPHINE SULFATE INJ 4 MG/ML DISP.SYRIN ONE ×2 (09:12→11:27)
[2024-11-12] MEDS ORDERED: ONDANSETRON HCL/PF 4 MG/2 ML VIAL ONE (09:12)
[2024-11-12 09:17] LABS: PLATELET COUNT (AUTO) 602 K/uL (150-450); RED BLOOD CELL COUNT(AUTO) 3.98 MIL/uL (4.5-6.0); RED CELL DISTRIBUTION WIDTH 19.2 % (11.5-15.0); WHITE BLOOD COUNT (AUTO) 25.8 K/uL (4.3-11.0)
[2024-11-12 09:33] LABS: ASPARTATE AMINOTRANSFERASE 13.0 U/L (15-37); CALCIUM, SERUM 9.1 mg/dL (8.5-10.1); CREATININE 1.6 mg/dL (0.6-1.3); SODIUM SERUM 141.0 mmol/L (136-145); TOTAL PROTEIN, SERUM 7.0 g/dL (6.4-8.2); UREA NITROGEN, BLOOD 24.0 mg/dL (7-18)
[2024-11-12] MEDS: METRONIDAZOLE 500MG/ NS 100ML 500 MG in PREMIX 1 EA IV SCH ×2 (10:00→18:20)
[2024-11-12 10:09] LABS: LACTIC ACID 2.9 mmol/L (0.4-2.0)
[2024-11-12] MEDS: CIPROFLOXACIN IV RTU 400 MG in PREMIX 1 EA IV SCH ×2 (11:00→22:33)
[2024-11-12] MEDS ORDERED: MAG HYDROX/AL HYDROX/SIMETH 30 ML UDC PO PRN (12:30)
[2024-11-12] MEDS ORDERED: Z GUARD REMEDY 4 OZ OINT TP PRN (12:30)
[2024-11-12] MEDS ORDERED: MAGNESIUM HYDROXIDE 30 ML UDC PO PRN (12:30)
[2024-11-12] MEDS ORDERED: ONDANSETRON HCL/PF 4 MG/2 ML VIAL IVP PRN (12:30)
[2024-11-12 17:00] VITALS: BP 157/91; TEMP 98.2; O2SAT 100
[2024-11-12] MEDS: MORPHINE SULFATE INJ 4 MG/ML DISP.SYRIN IV PRN (17:33)
[2024-11-12] MEDS: VANCOMYCIN HCL 125 MG/2.5 ML ORAL.SUSP PO SCH (18:40)
[2024-11-12 20:00] VITALS: BP 137/86; TEMP 98.2; O2SAT 97
[2024-11-12] MEDS: ACETAMINOPHEN 325 MG TABLET PO PRN (22:59)
[2024-11-13 04:00] VITALS: BP 122/80; TEMP 97.7; O2SAT 100
[2024-11-13 08:00] VITALS: BP 138/95; TEMP 98.2; O2SAT 100
[2024-11-13] MEDS: PANTOPRAZOLE 40 MG VIAL IV SCH (08:08)
[2024-11-13 08:21] LABS: PLATELET COUNT (AUTO) 452 K/uL (150-450); RED BLOOD CELL COUNT(AUTO) 3.16 MIL/uL (4.5-6.0); RED CELL DISTRIBUTION WIDTH 18.4 % (11.5-15.0); WHITE BLOOD COUNT (AUTO) 8.6 K/uL (4.3-11.0)
[2024-11-13 08:44] LABS: CALCIUM, SERUM 8.7 mg/dL (8.5-10.1); CREATININE 1.2 mg/dL (0.6-1.3); PHOSPHORUS 3.5 mg/dL (2.5-4.9); SODIUM SERUM 139.0 mmol/L (136-145); UREA NITROGEN, BLOOD 16.0 mg/dL (7-18)
[2024-11-13 13:24] LABS: RHEUMATOID FACTOR SCREEN NEGATIVE (NEGATIVE)
[2024-11-13 13:37] LABS: IRON, SERUM 36.0 ug/dl (50-175)
[2024-11-13 15:19] LABS: HIV-1/2 ANTIBODY NON REACTIVE (NONREACTIVE)
[2024-11-13 16:00] VITALS: BP 147/95; TEMP 98.5; O2SAT 98
[2024-11-13] MEDS: HYDROCODONE/APAP 5/325MG TABLET PO ONE (16:17)
[2024-11-13 20:00] VITALS: BP 145/88; TEMP 98.2; O2SAT 99
[2024-11-14 04:00] VITALS: BP 128/88; TEMP 98.1; O2SAT 98
[2024-11-14 08:00] VITALS: BP 128/86; TEMP 98.2; O2SAT 100
[2024-11-14] MEDS: PANTOPRAZOLE 40 MG/PACK PACK PO SCH (08:23)
[2024-11-14] MEDS: METRONIDAZOLE 500 MG TABLET PO SCH (10:25)
[2024-11-14] MEDS: CIPROFLOXACIN IV RTU 400 MG in PREMIX 1 EA IV SCH (10:26)
[2024-11-14 12:01] LABS: PLATELET COUNT (AUTO) 407 K/uL (150-450); RED BLOOD CELL COUNT(AUTO) 3.31 MIL/uL (4.5-6.0); RED CELL DISTRIBUTION WIDTH 18.3 % (11.5-15.0); WHITE BLOOD COUNT (AUTO) 8.0 K/uL (4.3-11.0)
[2024-11-14 12:25] LABS: CALCIUM, SERUM 8.5 mg/dL (8.5-10.1); CREATININE 1.2 mg/dL (0.6-1.3); PHOSPHORUS 3.5 mg/dL (2.5-4.9); SODIUM SERUM 137.0 mmol/L (136-145); UREA NITROGEN, BLOOD 12.0 mg/dL (7-18)
[2024-11-14] MEDS: SOD FERRIC GLUC 125 MG in IV NS 0.9% 100 ML IV SCH (14:37)
[2024-11-14] MEDS ORDERED: IV NS 0.9% 250 ML IV ONE (15:30)
[2024-11-14] MEDS ORDERED: IOHEXOL-300 100 ML VIAL IV ONE (15:30)
[2024-11-14 16:00] VITALS: BP 131/80; TEMP 98; O2SAT 100
[2024-11-14] MEDS: PEG 3350/NA SULF,BICARB,CL/KCL 4,000 ML BOTTLE PO ONE (17:47)
[2024-11-14 20:00] VITALS: BP 132/88; TEMP 98.2; O2SAT 100
[2024-11-14] MEDS: MUPIROCIN OINT 2% 22 GM TUBE NS SCH (21:01)
[2024-11-15 04:00] VITALS: BP 103/62; TEMP 97.7; O2SAT 98
[2024-11-15] MEDS: IV NS 0.9% 1,000 ML IV PRN (06:33)
[2024-11-15 07:01] LABS: FIBRINOGEN ACTIVITY 428.0 Mg/dL (213-485); INR 1.04 (0.91-1.10)
[2024-11-15 07:17] LABS: CALCIUM, SERUM 8.6 mg/dL (8.5-10.1); CREATININE 1.3 mg/dL (0.6-1.3); PHOSPHORUS 4.0 mg/dL (2.5-4.9); SODIUM SERUM 136.0 mmol/L (136-145); UREA NITROGEN, BLOOD 10.0 mg/dL (7-18)
[2024-11-15 08:00] VITALS: BP 110/68; TEMP 97.7; O2SAT 98
[2024-11-15 08:36] LABS: PLATELET COUNT (AUTO) 531 K/uL (150-450); RED BLOOD CELL COUNT(AUTO) 3.83 MIL/uL (4.5-6.0); RED CELL DISTRIBUTION WIDTH 18.7 % (11.5-15.0); WHITE BLOOD COUNT (AUTO) 9.3 K/uL (4.3-11.0)
[2024-11-15 16:00] VITALS: BP 110/68; TEMP 97.7; O2SAT 98
[2024-11-15 20:00] VITALS: BP 106/72; TEMP 98.6; O2SAT 96
[2024-11-15] MEDS ORDERED: ZOLPIDEM TARTRATE 5 MG TABLET PO PRN (21:00)
[2024-11-15] MEDS: TRAMADOL HCL 50 MG TABLET PO PRN (21:27)
[2024-11-16 04:00] VITALS: BP 123/82; TEMP 98.1; O2SAT 97
[2024-11-16 08:00] VITALS: BP 119/78; TEMP 98.2; O2SAT 97
[2024-11-16] MEDS: AMITRIPTYLINE HCL 25 MG TABLET PO SCH (08:30)
[2024-11-16] MEDS: MIRTAZAPINE 15 MG TABLET PO SCH (08:30)
[2024-11-16 10:07] LABS: FREE KAPPA LT CHAINS SERUM 48.8 mg/L (3.3-19.4); FREE LAMBDA LT CHAIN SERUM 86.7 mg/L (5.7-26.3); KAPPA/LAMBDA RATIO SERUM 0.56 (0.26-1.65)
[2024-11-16 11:21] LABS: AMPHETAMINE, URINE NEGATIVE (NEGATIVE); BARBITURATE, URINE NEGATIVE (NEGATIVE); BENZODIAZEPINE, URINE NEGATIVE (NEGATIVE); CANNABINOID, URINE NEGATIVE (NEGATIVE); COCCAINE, URINE NEGATIVE (NEGATIVE)
[2024-11-16 11:25] LABS: OPIATE, URINE POSITIVE (NEGATIVE)
[2024-11-16 16:07] LABS: *ANA ANTI-CENTROMERE B AB <0.2 AI (0.0-0.9); *ANA ANTI-DNA(DS) AB, QN <1 IU/mL (0-9); *ANA ANTI-JO-1 <0.2 AI (0.0-0.9); *ANA ANTICHROMATIN ANTIBODY <0.2 AI (0.0-0.9); *ANA RNP ANTIBODIES <0.2 AI (0.0-0.9); *ANA SJOGREN'S ANTI-SS-A <0.2 AI (0.0-0.9); *ANA SJOGREN'S ANTI-SS-B <0.2 AI (0.0-0.9); *ANAANTI-SCLERODERMA-70 AB <0.2 AI (0.0-0.9); *ANASMITH AB <0.2 AI (0.0-0.9)
[2024-11-17 01:07] LABS: CARCINOEMBRYONIC ANTIGEN (CEA) 0.9 ng/mL (0.0-4.7); FOLIC ACID 17.8 ng/mL (>3.0)
[2024-11-17 02:07] LABS: HEPATITIS B CORE AB, IgM Negative (Negative); HEPATITIS B CORE AB, TOTAL Positive (Negative); HEPATITIS B SURFACE AB (QUAL) Non Reactive (.)
[2024-11-17 04:07] LABS: IMMUNOGLOBULIN A, SERUM 270 mg/dL (90-386); IMMUNOGLOBULIN M, SERUM 86 mg/dL (20-172)
== END 2024-11-16 14:26 | DRG 720 ==
LOC: ER 08:01 → MEDSG1 12:55
PROC: 05HB33Z Insertion of Infusion Device into Right Basilic Vein, Percutaneous Approach (ICD-10-PCS; principal; 2024-11-13)
PROC: B54MZZA Ultrasonography of Right Upper Extremity Veins, Guidance (ICD-10-PCS; 2024-11-13)
DX: A41.9 Sepsis, unspecified organism (principal); E87.20 Acidosis, unspecified; N17.9 Acute kidney failure, unspecified; E88.09 Other disorders of plasma-protein metabolism, not elsewhere classified; D50.9 Iron deficiency anemia, unspecified; C18.9 Malignant neoplasm of colon, unspecified; F17.210 Nicotine dependence, cigarettes, uncomplicated; K52.9 Noninfective gastroenteritis and colitis, unspecified; N18.9 Chronic kidney disease, unspecified; Z59.00 Homelessness unspecified; Z99.3 Dependence on wheelchair; D75.839 Thrombocytosis, unspecified; J45.909 Unspecified asthma, uncomplicated; M16.12 Unilateral primary osteoarthritis, left hip; Z88.2 Allergy status to sulfonamides; R59.0 Localized enlarged lymph nodes; D72.829 Elevated white blood cell count, unspecified; F19.11 Other psychoactive substance abuse, in remission; R91.1 Solitary pulmonary nodule; D72.821 Monocytosis (symptomatic); Z76.5 Malingerer [conscious simulation]; Z20.822 Contact with and (suspected) exposure to COVID-19; Z22.322 Carrier or suspected carrier of Methicillin resistant Staphylococcus aureus
CPT/HCPCS: 36415; 71260-TC; 80048-TC; 80076-TC; 82378; 82607-TC; 82728-TC; 82784; 83540-TC; 83605-TC; 83690-TC; 83735-TC; 84100-TC; 84155; 84165; 84443-TC; 85025-TC; 85027-TC; 85396; 86140-TC; 86225; 86235; 86334; 86431-TC; 86704; 86705; 86706; 86803; 87040-TC; 87081-TC; 87340; 87806; 92611-TC; 98960; A4216; A4223; G0378; J0744; J2270; J2405; J2470; J2916; J7030; J7040; J7050; Q9967